=== PATIENT | male | born 1980 | race Caucasian/White ===

== ENCOUNTER 2023-04-29 16:02 | Outpatient (OUT) | payer BC, SELFPAY ==
[2023-04-29 16:34] LABS: Basophils Percent Auto 0.3 % (0.2-2.0); Eosinophils Percent Auto 0.1 % (0.9-7.0); Hematocrit 40.1 % (42.0-54.0); Hemoglobin 12.9 g/dL (14.0-18.0); Immature Granulocytes Abs Auto 0.03 10^3/uL (0.00-0.03); Immature Granulocytes Pct Auto 0.3 % (0.0-0.5); Lymphocytes Absolute Auto 0.8 10^3/uL (1.2-3.8); Lymphocytes Percent Auto 8.5 % (20.5-60.0); Mean Corpuscular HGB Conc 32.2 g/dL (29.9-35.2); Mean Corpuscular Volume 83.9 fL (80.0-94.0); Mean Platelet Volume 8.5 fL (9.5-13.5); Monocytes Absolute Auto 0.5 10^3/uL (0.3-0.8); Monocytes Percent Auto 5.3 % (1.7-12.0); Neutrophils Absolute Auto 8.2 10^3/uL (1.4-6.5); Neutrophils Percent Auto 85.5 % (43.0-75.0); Platelet Count 341 10^3/uL (150-450); Red Blood Count 4.78 10^6/uL (4.70-6.10); Red Cell Distribution Width 15.1 % (11.0-15.0); White Blood Count 9.6 10^3/uL (4.0-11.0)
[2023-04-29 16:43] LABS: Alanine Aminotransferase 14 U/L (16-63); Albumin Globulin Ratio 0.9; Albumin Level 3.6 g/dL (3.4-5.0); Alkaline Phosphatase 78 U/L (46-116); Anion Gap 13.8; Aspartate Amino Transferase 7 U/L (15-37); BUN Creatinine Ratio 10.9; Bilirubin Total 0.2 mg/dL (0.2-1.0); Calcium 8.9 mg/dL (8.5-10.1); Carbon Dioxide 27.7 mmol/L (21.0-32.0); Chloride 100 mmol/L (98-107); Estimated GFR (African America >60 (>=60); Estimated GFR (Non-African Ame >60 (>=60); Globulin 4.2 g/dL; Glucose 113 mg/dL (74-106); Potassium 4.5 mmol/L (3.5-5.1); Sodium 137 mmol/L (136-145); Total Protein 7.8 g/dL (6.4-8.2)
[2023-05-01 05:07] LABS: HIV Ab/p24 Ag Screen Non Reactive (Non Reactive); Hep B Core Ab, Tot Negative (Negative); Hepatitis B Surf Ab Quant <3.1 mIU/mL (Immunity>9.9)
[2023-12-19 09:37] LABS: QuantiFERON-TB Gold Plus NEGATIVE
== END 2023-04-29 16:03 | disposition home or self-care (01) ==
LOC: LAB 16:05
PROVIDERS: PCP Internal Medicine; Visit Provider Internal Medicine
DX: K50.90 Crohn's disease, unspecified, without complications (principal)
CPT/HCPCS: 36415; 80053; 85025; 86480; 86706; 87389; 87517

== ENCOUNTER 2023-07-25 07:44 | Outpatient (RCR) | payer BC, SELFPAY ==
[2023-07-25] MEDS: USTEKINUMAB IV (13:08)
[2023-07-25] MEDS: SODIUM CHLORIDE 0.9% IV (13:08)
[2023-07-25 13:11] VITALS: BP 137/77; PULSE 66; RESP 16; TEMP 37.3; O2SAT 97
--- NOTE | 2023-07-25 13:13 | PC.NURSE ---
1248: Pt. to [facility] amb. for scheduled infusion. Seated in recliner. VSS. Denies questions regarding Stelara. #22 gauge IV initiated to right hand on first attempt without difficulty. Flushes easily with no redness or edema. Pt. tolerated with no c/o discomfort. 1308: IV Stelara initiated at this time. Instructed pt. to inform this RN if experiences any adverse symptoms ie: chills, n/v, pain, or dyspnea. Pt. relays understanding.
--- NOTE | 2023-07-25 13:29 | PC.NURSE ---
Pt. tolerating infusion without c/o. Denies needs.
[2023-07-25 14:09] VITALS: BP 132/68; PULSE 66; RESP 16; TEMP 37.2; O2SAT 99
--- NOTE | 2023-07-25 14:10 | PC.NURSE ---
1408: Stelara infusion completed at this time. Pt. without adverse reaction. VSS. IV d/c'd, pressure to site. D/c'd amb. to home.
== END 2023-08-21 23:59 | disposition home or self-care (01) ==
LOC: INF 07:44
PROVIDERS: PCP Internal Medicine; Visit Provider Internal Medicine
DX: K50.90 Crohn's disease, unspecified, without complications (principal)
CPT/HCPCS: 96365; J3358